=== PATIENT | female | born 1985 | race Two or more races ===

== ENCOUNTER → 2021-05-17 | Outpatient (CLI) | payer OTHER, SELFPAY ==
[2021-05-20 21:06] LABS: Chlamydia By Nucleic Acid AMP Negative (Negative)
[2021-05-20 23:10] LABS: Gonococcus By Nucleic Acid AMP Negative (Negative)
[2021-05-28 09:18] LABS: HPV APTIMA, High Risk Positive (Negative)
== END | disposition home or self-care (01) ==
LOC: LABSPEC 14:18
PROVIDERS: Visit Provider Obstetrics & Gynecology
DX: Z11.3 Encounter for screening for infections with a predominantly sexual mode of transmission (principal); Z12.4 Encounter for screening for malignant neoplasm of cervix
CPT/HCPCS: 87491; 87591; 87624; 88175; G0145

== ENCOUNTER 2021-06-21 14:19 | Outpatient (CLI) | payer OTHER, SELFPAY ==
--- NOTE | 2021-06-21 | IMM_PTH ---
PATIENT: DENEEN MADRID LOC: [facility] U#:[id number] AGE/SX: 35/F ROOM: RE06/21/[address]: Dr. Rigo Varela MD : 1985 BED: DIS: 06/21/2021 SPEC #: [id number] RECD: 06/25/21 14:04 STATUS: ARIADNE REGwen #: [id number] ROSA: 06/21/21 00:[address]: Rigo Varela DEPT: IMMUNOHISTOCHEMISTRY RECD BY: Rosa Maria Lam Tissues: B - Uterine cervix, NOS Procedures: p16 (initial) KI-67 (add) PHYSICIAN & INSTITUTION [place] [id number] SPECIMEN INFORMATION: Tissue Source: B ? Cervix at 1 and 5 o?clock Clinical Info: ASCUS, positive HPV Specimen Number: [id number] CPT code: 85002, 20873 METHODOLOGY: Deparaffinized sections of prefer/formalin-fixed tissue or PAP/DQ stained slides are incubated with monoclonal/polyclonal antibodies/oligonucleotide probes. Localization is made via biotin free immunoperoxidase method. Appropriate controls are performed and reacted as expected. Results on target cell population are indicated in the following table: RESULTS: ANTIBODY / CLONE RESULT Block B P16 (E6H4) positive, focal minimal patchy staining Ki-67 (30-9) positive, low These tests were developed and their performance characteristics determined by [facility]. They may not have been cleared or approved by the [place]. Food and Drug Administration. The FDA has determined that such clearance or approval is not necessary. The above immunohistochemical/dualISH markers are ordered and reviewed by the Pathologist. INTERPRETATION: B. Cervix at 1 and 5 o?clock, biopsy: Focal minimal changes suspicious for HPV cytopathic effects. SJ:[email or web address] 06/26/2021
--- NOTE | 2021-06-21 13:45 | CER_PTH ---
PATIENT: DENEEN MADRID LOC: [facility] U#:[id number] AGE/SX: 35/F ROOM: RE06/21/[address]: Dr. Rigo Varela MD : 1985 BED: DIS: 06/21/2021 SPEC #: [id number] RECD: 06/21/21 14:41 STATUS: ARIADNE MELANI #: [id number] ROSA: 06/21/21 13:[address]: Rigo Varela DEPT: SURGICAL PATHOLOGY RECD BY: Kimebrly Royal Tissues: A - Endocervical B - Uterine cervix, NOS Procedures: Surgery Specimen Level IV HEADER OPERATION: Colposcopy PRE-OP DIAGNOSIS: ASCUS positive HPV TISSUE SUBMITTED: A ? ECC, B ? Cervix 1 and 5 o?clock MICROSCOPIC DIAGNOSIS A. ECC: Scant fragments of benign ecto- and endocervical epithelium, negative for dysplasia. B. Cervix, 1 and 5 o?clock, biopsy: Focal minimal changes suspicious for HPV cytopathic effects. Acute and chronic inflammation. See comment. DEMETRICE:[email or web address] 06/25/2021 COMMENT B. Immunohistochemistry ([id number]) for surrogate HPV marker (p16) supports the above diagnosis. MICROSCOPIC DESCRIPTION Slides are reviewed. GROSS DESCRIPTION A - Received in fixative is one container labeled with the patient's name and designated ECC. The specimen consists of a scant amount of soft tissue. The specimen is totally submitted for cell block preparation. B - Received in fixative is one container labeled with the patient's name and designated 1 and 5. The specimen consists of two irregular fragments of light dave soft tissue that in aggregate measure 0.5 x 0.3 x 0.1 cm. The specimen is totally submitted in one cassette. / DEMETRICE:jessica 06/24/2021 TC:5 CPT: 00555 x2
== END 2021-06-21 23:59 | disposition short-term general hospital (02) ==
PROVIDERS: Visit Provider Obstetrics & Gynecology
DX: N89.8 Other specified noninflammatory disorders of vagina (principal); R87.810 Cervical high risk human papillomavirus (HPV) DNA test positive
CPT/HCPCS: 88305; 88341; 88342